=== PATIENT | male | born 2000 | race Caucasian/White ===

== ENCOUNTER 2020-01-19 01:55 | Emergency (ER) | payer OTHER, SELFPAY ==
[2020-01-19 01:57] VITALS: BP 178/80; PULSE 129; RESP 15; TEMP 36.9; O2SAT 98; BMI 21.0
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
[2020-01-19] MEDS: 0.9% Normal Saline 1,000 ML 999 ML IV (02:11)
[2020-01-19 02:32] LABS: Absolute Neutrophil Count 16.5 X10^3/uL (2.0-7.7); Basophil# 0.03 X10^3/uL; Basophil% 0.1 % (0-1); Hematocrit 47.3 % (40-54); Hemoglobin 15.7 g/dL (13.0-16.5); Lymphocyte % 17.4 % (19-41); Mean Corp Hgb Conc 33.2 g/dL (32-36); Mean Corpuscular Hgb 29.5 pg (27.0-32.0); Mean Corpuscular Volume 88.7 fL (80-94); Mean Platelet Vol. 9.4 fl (6.2-12.0); Monocyte% 6.4 % (0-10); NRBC Flagged by Analyzer 0 % (0-5); Neutrophil # 16.49 X10^3/uL (2.7-7.7); Neutrophil % 75.3 % (47-70); Platelet Count 394 K/mm3 (150-450); RBC Distribution Width SD 41.9 fl (35.1-43.9); Red Blood Count 5.33 M/mm3 (4.6-6.2); White Blood Count 21.9 K/mm3 (4.4-11.0)
[2020-01-19 02:42] LABS: Anion Gap 8 (5-15); BUN 10 mg/dL (7-18); BUN/Creat Ratio 8.8 RATIO (10-20); Calcium,Total 8.8 mg/dL (8.5-10.1); Chloride 107 mmol/L (98-107); Creatinine, Serum 1.13 mg/dL (0.70-1.30); EST Glomerular Filtration Rate 88 mL/min (>60); Est Glom Filt Rate - Afr Amer 106 mL/min (>60); Estimated Creatinine Clearance 109.59 ml/min; Glucose 160 mg/dL (74-106); Sodium Level 140 mmol/L (136-145)
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
[2020-01-19 04:42] VITALS: PULSE 16
== END 2020-01-19 04:44 | disposition home or self-care (01) ==
PROVIDERS: Emergency Provider Emergency Medicine
DX: S60.052A Contusion of left little finger without damage to nail, initial encounter (principal); S00.511A Abrasion of lip, initial encounter; V48.5XXA Car driver injured in noncollision transport accident in traffic accident, initial encounter; F32.9 Major depressive disorder, single episode, unspecified; F17.200 Nicotine dependence, unspecified, uncomplicated
CPT/HCPCS: 70450; 71045; 72125; 73130; 73552; 74177; 80048; 85025; 96360; 96361; 99285; J7030; A4216